=== PATIENT | female | born 1970 ===

== ENCOUNTER → 2022-06-16 | Day surgery (SDC) | payer OTHER ==
[2022-06-12 11:28] LABS: BUN 13 mg/dl (9-23); CHLORIDE 105 mmol/L (98-107); CREATININE 0.69 mg/dL (0.55-1.02); POTASSIUM 4.5 mmol/L (3.4-5.1); SODIUM 141 mmol/L (136-145)
[~2022-06-16] VITALS: Ht 154.9 cm; Wt 61.2 kg
[2022-06-16 07:10] VITALS: BP 115/60
[2022-06-16 07:45] LABS: BUN 16 mg/dl (9-23); CHLORIDE 106 mmol/L (98-107); CREATININE 0.71 mg/dL (0.55-1.02); POTASSIUM 3.8 mmol/L (3.4-5.1); SODIUM 140 mmol/L (136-145)
[2022-06-16 08:28] VITALS: BP 125/65
[2022-06-16 08:58] VITALS: BP 122/70
== END | disposition home or self-care (01) ==
LOC: SDC 06-11 00:31
PROVIDERS: ATTEND Orthopaedic Surgery
DX: G56.03 Carpal tunnel syndrome, bilateral upper limbs (principal); M65.311 Trigger thumb, right thumb; M19.90 Unspecified osteoarthritis, unspecified site; F17.210 Nicotine dependence, cigarettes, uncomplicated; Z90.49 Acquired absence of other specified parts of digestive tract; Z90.89 Acquired absence of other organs

== ENCOUNTER → 2023-11-18 | Day surgery (SDC) | payer OTHER ==
[~2023-11-18] VITALS: Ht 154.9 cm; Wt 61.2 kg
[~2023-11-18] MED LIST: BUPIVACAINE 0.5% 10 ML VIAL ONE; Clindamycin Phosphate 50 ML IV ONE; Lactated Ringer's Solution 1,000 ML IV ONE; Lidocaine Hydrochloride 2% 10 ML AMP IM ONE; Lidocaine Hydrochloride 30 ML VIAL ONE; Midazolam Hydrochloride 2 MG/2 ML VIAL IV ONE; PROPOFOL 200 MG/20 ML VIAL IV ONE; VENT7GM INH
[2023-11-18 07:15] VITALS: BP 87/60
[2023-11-18 08:46] VITALS: BP 107/57
[2023-11-18 08:55] VITALS: BP 109/52
[2023-11-18 09:16] VITALS: BP 99/52
== END | disposition home or self-care (01) ==
LOC: SDC 11-01 11:00
PROVIDERS: ATTEND Orthopaedic Surgery
DX: G56.02 Carpal tunnel syndrome, left upper limb (principal); J45.909 Unspecified asthma, uncomplicated; M19.90 Unspecified osteoarthritis, unspecified site; F17.210 Nicotine dependence, cigarettes, uncomplicated; F12.90 Cannabis use, unspecified, uncomplicated; Z98.51 Tubal ligation status; Z90.49 Acquired absence of other specified parts of digestive tract; Z90.89 Acquired absence of other organs; Z86.73 Personal history of transient ischemic attack (TIA), and cerebral infarction without residual deficits; Z98.890 Other specified postprocedural states; Z79.899 Other long term (current) drug therapy; Z88.0 Allergy status to penicillin; Z88.8 Allergy status to other drugs, medicaments and biological substances